=== PATIENT | male | born 1945 | race Caucasian/White ===

== ENCOUNTER 2024-05-20 06:57 | Day surgery (SDC) | payer MEDICARE ==
[2024-05-20] MEDS: CEFAZOLIN 2 GM/100 ML NaCl 2 GM/100 ML IVPB IV SCH (07:19)
[2024-05-20] MEDS: Lactated Ringers 1,000 ML IV SCH (07:19)
[2024-05-20] MEDS ORDERED: Zofran 4 MG/2 ML VIAL ONE (08:42)
[2024-05-20] MEDS ORDERED: Decadron 4 MG INJ ONE (08:42)
[2024-05-20] MEDS ORDERED: DIPRIVAN 200 MG/20 ML IV ONE (08:42)
[2024-05-20] MEDS ORDERED: SUBLIMAZE 100 MCG/2 ML ONE ×2 (08:42→09:13)
[2024-05-20] MEDS ORDERED: Xylocaine-Mpf 2% 5 Ml Vial ONE (08:42)
[2024-05-20] MEDS ORDERED: MARCAINE 0.5%-EPI 1:200,000 VL IJ ONE (08:56)
[2024-05-20] MEDS ORDERED: OFIRMEV 100 ML IV ONE (09:27)
[2024-05-20] MEDS ORDERED: TORAdol 30 mg Injection ONE (09:45)
[2024-05-20] MEDS ORDERED: APRESOLINE 20 MG/ML INJ ONE (10:18)
[2024-05-20 11:07] VITALS: TEMP 97.5; O2SAT 95
[2024-05-20 11:19] VITALS: BP 152/78; PULSE 61; RESP 16
--- NOTE | 2024-05-22 19:55 | OP ---
SURGERY DATE/TIME: 05/20/2024 4505 - [id number] PREOPERATIVE DIAGNOSIS: Torn left medial meniscus. POSTOPERATIVE DIAGNOSIS: Torn left medial meniscus, degenerative joint disease left knee. PROCEDURE: Arthroscopy of the left knee with partial medial meniscectomy and chondroplasty of the medial femoral condyle, patella and trochlear groove. SURGEON: Abad Martinez II, DO ANESTHESIA: General. DESCRIPTION OF PROCEDURE AND FINDINGS: The patient was identified and informed consent was obtained. The patient was taken to the operative suite where he was placed into the supine position on the operating table where the general anesthetic was administered. Once an appropriate level of anesthesia had been obtained, a tourniquet was placed high on the left thigh. The left lower extremity was then placed into the knee snowden and prepped and draped in the usual sterile fashion. A standard time out was taken. At this point, the leg was exsanguinated and tourniquet elevated to 350 mmHg. A superomedial portal was created with a #11 blade. The trocar and cannula were then placed into the joint. The joint was distended with the arthroscopic pump. An inferolateral portal was created with an 11 blade and the arthroscope was placed in through a cannula. An 18-gauge spinal needle identified the level for the inferomedial portal and this was also then created with an 11 blade. The knee was then inspected in a systematic fashion beginning in the suprapatellar pouch. There was some reactive synovitis which was shaved with the shaver. Undersurface of the patella was inspected. There was grade 2 and 3 chondromalacia noted as well as generalized thinning of the articular cartilage. Limited chondroplasty was performed. The trochlear groove had some again chondromalacia and degenerative changes more significantly noted along the medial femoral condyle. The scope was then placed into the medial compartment where a complex tear involving the middle and posterior horns of the medial meniscus was encountered, resecting with the handheld biting instruments and shaved to a smooth transition with the shaver. Chondroplasty was also performed on the medial femoral condyle. Intercondylar notch region was inspected. Anterior cruciate ligament was noted to be intact. Scope was placed in the lateral compartment where the lateral meniscus was probed throughout its entirety and noted to be intact. The femoral condyle and tibial plateau had no significant evidence of degenerative changes. At this point the knee was copiously irrigated and reinspected and no further pathology identified. The instrumentation was removed and the portal sites were closed with interrupted 4-0 nylon suture. The knee was infiltrated with 30 mL of 0.25% Marcaine with epinephrine, Adaptics, 4 x 4's and a standard postoperative arthroscopy dressing applied. The patient was transferred to the cart and taken to the recovery room in satisfactory condition having tolerated the procedure well.
== END 2024-05-20 11:24 | disposition home or self-care (01) ==
LOC: SDC 06:57
PROVIDERS: ATTEND Orthopaedic Surgery
DX: S83.242A Other tear of medial meniscus, current injury, left knee, initial encounter (principal); M25.562 Pain in left knee; M17.12 Unilateral primary osteoarthritis, left knee
CPT/HCPCS: 29881; 93005; J0360; J0690; J1100; J1885; J2405; J2704; J3010

== ENCOUNTER 2025-07-04 09:18 | Emergency (ER) | payer MEDICARE ==
[2025-07-04] MEDS ORDERED: Heparin 25,000 units/D5W: USE ORDER SET PROTO 25,000 UNITS/250 ML BAG IV ONE (09:30)
[2025-07-04] MEDS ORDERED: BABY ASPIRIN 81 MG CHEW ONE (09:30)
[2025-07-04] MEDS ORDERED: HEPARIN 5000 UNITS/0.5 ML (HIGH RISK MED) ONE (09:37)
[2025-07-04 09:45] VITALS: BP 169/85; PULSE 93; RESP 15; TEMP 96.2
[2025-07-04 09:45] LABS: Hematocrit 49.5 % (40.1-51.0); Hemoglobin 16.4 g/dL (13.7-17.5); Mean Corpuscular Hemoglobin 29.2 pg (25.7-32.2); Mean Corpuscular Hgb Concent. 33.1 g/dL (32.3-36.5); Platelet Count 255 x10^3/uL (163-337); Red Blood Count 5.62 x10^6/uL (4.63-6.08); White Blood Count 12.2 x10^3/uL (4.23-9.07)
[2025-07-04] MEDS: BABY ASPIRIN 81 MG CHEW PO ONE (09:45)
[2025-07-04 09:46] VITALS: O2SAT 97
--- NOTE | 2025-07-04 09:52 | ERPHSYRPT ---
- History of Present Illness Time Seen by Provider: 07/04/25 09:47 Historian: patient Exam Limitations: no limitations Patient Subjective Stated Complaint: c/o abdominal pain and back pain Triage Nursing Assessment: patient brought to ED by Physician History: Patient is a 80-year-old male history of hypertension presents to our ED for evaluation of epigastric pain,, chest pain radiating to his back and left arm. Pain started this morning. Patient states the pain has eased up since arrival. Patient denies nausea. No vomiting. No trauma no fever. Extremity pulses are equal bilaterally. No pulsatile abdominal masses. EKG suggestive of inferior wall STEMI with reciprocal changes. Patient has not taken any aspirin or nitroglycerin today. Symptoms are constant. However chest pain is improving per patient. Patient states the pain is almost resolved. Patient voices no other complaints or concerns at this time. Portions of this note were created with voice recognition technology. There may be grammatical, spelling, punctuation or sound alike errors Timing/Duration: today Activities at Onset: none Quality: aching Location: substernal Chest Pain Radiation: arm, back Severity of Pain-Max: moderate Severity of Pain-Current: mild Modifying Factors: Improves With: nothing Associated Symptoms: denies symptoms Prior Chest Pain/Cardiac Workup: no prior chest pain Nitro Today/Relief: no nitro taken today Aspirin Treatment Today: no aspirin today Allergies/Adverse Reactions: procaine [From Novocain] Allergy (Verified 07/04/25 09:45) Home Medications: Metoprolol Succinate 50 mg [Toprol Xl 50 MG] 50 mg PO DAILY 04/25/24 [History] Rivaroxaban [Xarelto] 20 mg PO DAILY 04/25/24 [History] Valsartan/Hydrochlorothiazide [Valsartan-Hctz 320-25 mg Tab] 1 tab PO DAILY 04/25/24 [History] Hx Tetanus, Diphtheria Vaccination/Date Given: (unknown) Hx Influenza Vaccination/Date Given: (unknown) Hx Pneumococcal Vaccination/Date Given: (unknown) Travel Risk - International Travel Have you traveled outside of the country in past 3 weeks: No - Emerging Infectious Disease Are you exhibiting symptoms associated with any current EIDs: Yes Symptoms: Abdominal Pain - Review of Systems All Other Systems: Reviewed and Negative - Past Medical History Pertinent Past Medical History: Yes Neurological History: No Pertinent History ENT History: No Pertinent History Cardiac History: Arrhythmia, Hypertension Respiratory History: No Pertinent History Endocrine Medical History: No Pertinent History Musculoskeletal History: No Pertinent History GI Medical History: No Pertinent History History: No Pertinent History Psycho-Social History: No Pertinent History Male Reproductive Disorders: No Pertinent History Other Medical History: afib. skin cancer - Past Surgical History Past Surgical History: Yes Neuro Surgical History: No Pertinent History Cardiac: No Pertinent History Respiratory: No Pertinent History Gastrointestinal: Hernia Repair Genitourinary: No Pertinent History Musculoskeletal: No Pertinent History Male Surgical History: No Pertinent History - Social History Smoking Status: Never smoker Exposure to second hand smoke: No Drug Use: none - Social Determinants of Health Will the patient participate in the screening: Declined to provide - Nursing Vital Signs Nursing Vital Signs: Initial Vital Signs Pulse Rate 78 07/04/25 09:19 Respiratory Rate 20 07/04/25 09:19 Blood Pressure 171/117 07/04/25 09:19 O2 Sat by Pulse Oximetry 97 07/04/25 09:19 Pain Scale Pain Intensity 5 - Physical Exam General Appearance: no apparent distress, alert Eye Exam: PERRL/EOMI, eyes nml inspection Ears, Nose, Throat Exam: normal ENT inspection, moist mucous membranes Neck Exam: normal inspection, full range of motion Respiratory Exam: normal breath sounds, lungs clear, airway intact, No respiratory distress Cardiovascular Exam: regular rate/rhythm, normal heart sounds Gastrointestinal/Abdomen Exam: soft, other (No pulsatile abdominal masses. No abdominal tenderness. No epigastric tenderness), No tenderness, No mass Back Exam: normal inspection, No CVA tenderness, No vertebral tenderness Extremity Exam: normal inspection, normal range of motion, other (Extremity pulses are equal bilaterally palpable.) Neurologic Exam: alert, oriented x 3, cooperative, normal mood/affect, sensation nml, No motor deficits Skin Exam: normal color, warm, dry Lymphatic Exam: No adenopathy SpO2 Interpretation: normal SpO2: 97 O2 Delivery: Room Air - Course Nursing assessment & vital signs reviewed: Yes - Radiology Exams Chest X-ray Interpretation: Interpreted by me (No obvious acute findings. This is a preliminary read. 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 Care 07/04/25 09:38 Completed EKG-ER Only STAT Care 07/04/25 09:38 Completed IV Insertion STAT Care 07/04/25 09:38 Completed Pulse Oximetry (ED) STAT Care 07/04/25 09:38 Completed CHEST 1 VIEW (PORTABLE) Stat Exams 07/04/25 09:38 Completed CBC W DIFF Stat Lab 07/04/25 09:35 Completed CMP Stat Lab 07/04/25 09:35 Completed Manual Differential NC Stat Lab 07/04/25 09:35 Completed NT PRO BNPII Stat Lab 07/04/25 09:35 Completed TROPONIN Q4H Lab 07/04/25 09:35 Completed TROPONIN Q4H Lab 07/04/25 13:45 Ordered TROPONIN Q4H Lab 07/04/25 17:45 Ordered Medication Summary Discontinued Medications Generic Name Dose Route Start Last Admin Trade Name Freq PRN Reason Stop Dose Admin Aspirin Confirm 07/04/25 09:30 Aspirin 81 Mg Tab.Chew Administered 07/04/25 09:31 Dose 324 mg .ROUTE .STK-MED ONE Aspirin 324 mg 07/04/25 09:38 07/04/25 09:45 Aspirin 81 Mg Tab.Chew PO 07/04/25 09:39 324 mg STAT ONE Administration Heparin Sodium (Beef Lung) Confirm 07/04/25 09:37 Heparin 5000 Units/0.5 Ml 5,000 Unit/0.5 Ml Syr Administered 07/04/25 09:38 Dose 5,000 unit .ROUTE .STK-MED ONE Heparin Sodium/Dextrose Confirm 07/04/25 09:30 Heparin 25,000 Units/D5w: Use Order Set Anne Administered 07/04/25 09:31 Dose 25,000 units in 250 mls @ ud IV .STK-MED ONE Lab/Rad Data: Laboratory Result Diagrams 07/04/25 09:35 07/04/25 09:35 Laboratory Results 07/04/25 07/04/25 07/04/25 Range/Units 09:35 09:35 09:35 WBC 12.2 H (4.23-9.07) x10^3/uL RBC 5.62 (4.63-6.08) x10^6/uL Hgb 16.4 (13.7-17.5) g/dL Hct 49.5 (40.1-51.0) % MCV 88.1 (79.0-92.2) fL MCH 29.2 (25.7-32.2) pg MCHC 33.1 (32.3-36.5) g/dL RDW 12.9 (11.6-14.4) % Plt Count 255 (163-337) x10^3/uL MPV 11.4 (9.4-12.4) fL Sodium 140 (135-145) mmol/L Potassium 3.4 L (3.5-5.1) mmol/L Chloride 104 (98-107) mmol/L Carbon Dioxide 25 (22-30) mmol/L Anion Gap 14.0 (5-15) MEQ/L BUN 15 (9-20) mg/dL Creatinine 0.95 (0.66-1.25) mg/dL Estimated GFR 81.9 ML/MIN Glucose 129 H (74-106) mg/dL Calcium 9.8 (8.4-10.2) mg/dL Total Bilirubin 0.70 (0.2-1.3) mg/dL AST 31 (17-59) U/L ALT 24 (0-50) U/L Alkaline Phosphatase 109 (38-126) U/L Troponin I < 0.012 (0.000-0.033) ng/mL NT-Pro-B Natriuret Pep 155 (<300) pg/mL Serum Total Protein 7.1 (6.3-8.2) g/dL Albumin 4.4 (3.5-5.0) g/dL - Progress Progress: improved Air Movement: good Progress Note: Case discussed with Augusto Villalpando ER physician at [facility] who accepts transfer at 9:28 AM. EKG and facesheet faxed over. 07/04/25 09:55 Patient is a 80-year-old male history of hypertension presents to our ED for evaluation of epigastric pain,, chest pain radiating to his back and left arm. Pain started this morning. Patient states the pain has eased up since arrival. Patient denies nausea. No vomiting. No trauma no fever. Physical exam shows no pulsatile abdominal masses. Peripheral pulses equal bilaterally. Patient's chest pain is easing up. EKG reveals inferior wall ST segment elevation with reciprocal changes laterally. Chest x-ray shows no acute pathology. No mediastinal widening. Laboratory workup reveals a leukocytosis of 12. Potassium 3.4. Troponin negative. Patient received heparin bolus and infusion. 324 mg tubal aspirin administered. We contacted [facility] who accepts transfer at 9:28 AM. Case discussed with Dr. Ruth. Facesheet and EKG faxed. Number of faxes [phone]. Plan of care discussed with patient. He agreed to transfer to [facility] for further evaluation and treatment. Patient transferred in stable condition. Patient voiced no other complaints or concerns. Portions of this note were created with voice recognition technology. There may be grammatical, spelling, punctuation or sound alike errors 07/04/25 10:23 History obtained from patient. I considered administering nitroglycerin drip. However in light of the inferior wall STEMI as per the EKG patient would be at risk for hypotension. Secondly patient's chest pain had resolved. So nitroglycerin drip, not administered Differential diagnosis includes STEMI, aortic dissection, esophagitis/gastritis Dr. Muro independently reviewed and interpreted the chest x-ray. No mediastinal widening. No acute findings. This is a preliminary read however formal read obtained from radiologist who agrees that there are no acute findings on chest x-ray. Complexity of problems addressed is moderate, acute complicated. Critical care time was 30 minutes. Immediate intervention indicated to prevent further deterioration. Complexity of data reviewed and analyzed is extensive. Test ordered chest reviewed results analyzed and correlated clinically with history and physical exam. Risk of complication and or risk of morbidity/mortality of patient management is high. Patient require transfer to higher level of care. Vital stable. Time spent to transfer patient is approximately 20 minutes. Plan of care established for shared decision making. No social determinants of health present to impede follow-up. 07/04/25 10:26 Blood Culture(s) Obtained: No Antibiotics given: No Will see patient in: other Counseled pt/family regarding: diagnosis, rad results - Departure Departure Disposition: Transfer Clinical Impression: STEMI (ST elevation myocardial infarction), Chest pain Condition: Stable Critical Care Time: Yes Critical Care Time(excluding separately billable procedures): Critical 30-74 mins Referrals: Torrey FALLON [Primary Care Provider, UNKNOWN] - Follow up/PCP as directed
--- NOTE | 2025-07-04 09:56 | XRAY ---
Indication: Chest pain. Comparison: May 13, 2024 Portable apical lordotic chest less inflated and remains clear again with a few incidental tiny calcified granulomas. Heart not enlarged. Bony thorax intact again with osteopenia and mild degenerative changes. No new/acute findings.
[2025-07-04 10:01] LABS: Calcium 9.8 mg/dL (8.4-10.2); Carbon Dioxide 25.0 mmol/L (22-30); Creatinine 1 0.95 mg/dL (0.66-1.25); EST GLOMERULAR FILTRATION RATE 81.9 ML/MIN; Glucose 129.0 mg/dL (74-106); NT PRO BNPII 155.0 pg/mL (<300); Potassium 3.4 mmol/L (3.5-5.1); SGOT/AST 31.0 U/L (17-59); SGPT/ALT 24.0 U/L (0-50); Total Protein 7.1 g/dL (6.3-8.2)
[2025-07-04 10:36] LABS: Total Cells Counted 100
== END 2025-07-04 09:48 | disposition short-term general hospital (02) ==
LOC: ED 09:18
DX: I21.3 ST elevation (STEMI) myocardial infarction of unspecified site (principal); R07.9 Chest pain, unspecified; I10 Essential (primary) hypertension; Z79.01 Long term (current) use of anticoagulants; Z79.899 Other long term (current) drug therapy